=== PATIENT | male | born 1975 | race Caucasian/White ===

== ENCOUNTER → 2017-09-08 | Outpatient (CLI) | payer OTHER | LOC: FIMAGING 11:26 | PROVIDERS: ATTEND Internal Medicine | DX: R07.81 Pleurodynia (principal) ==

== ENCOUNTER → 2018-02-23 | Outpatient (CLI) | payer OTHER | LOC: FIMAGING 12:35 | PROVIDERS: ATTEND Internal Medicine | DX: Z03.89 Encounter for observation for other suspected diseases and conditions ruled out (principal) ==

== ENCOUNTER → 2018-05-31 | Outpatient (CLI) | payer OTHER | LOC: FIMAGING 14:01 | PROVIDERS: ATTEND Internal Medicine | DX: R07.2 Precordial pain (principal) ==

== ENCOUNTER 2018-07-19 18:31 | Emergency (ER) | payer OTHER ==
--- NOTE | 2018-07-19 18:52 | EDPHY ---
H & P Time Seen by Provider: 07/19/18 18:51 HPI/ROS: Chief complaint. Right arm and chest pain HPI. 42-year-old male with complaints of right arm shooting pain today. It is in the middle of his forearm and it comes and goes lasting 1-5 seconds. No injury or trauma. No swelling. No weakness to his arm. He also has had some occasional chest discomfort though he does not have it now. History of GERD. Using [id number] GI medication for the 3 days in his GERD is better. Chest pain is on the right side and occasionally sharp. It seems to improved and resolved after quitting of a ping. Occasionally cold and sweaty. Patient is concerned about cost and only wants an EKG and lab for his heart. Does not want x-ray of his right arm. Recently given heart monitor by his PCP ROS 10 systems were reviewed and negative with the exception of the elements mentioned in the history of present illness Past Medical/Surgical History: Healthy Social History: Single, nonsmoker, no alcohol Smoking Status: Never smoked Physical Exam: General Appearance: Alert well-developed male mild distress vital signs are stable Eyes: Pupils equal and round no pallor or injection. ENT, Mouth: Mucous membranes are moist. Respiratory: There are no retractions, lungs are clear to auscultation. Cardiovascular: Regular rate and rhythm. Gastrointestinal: Abdomen is soft and nontender, no masses, bowel sounds normal. Neurological: Awake and alert, sensory and motor exams grossly normal. Skin: Warm and dry, no rashes. Musculoskeletal: Neck is supple nontender. Extremities patient shows me where the discomfort is in the right mid forearm. There is no swelling. No deformity. Radial pulses full and equal. Good range of motion. No rash. Psychiatric: Patient is oriented X 3, there is no agitation. Constitutional: Initial Vital Signs Temperature (C) 36.4 C 07/19/18 18:38 Heart Rate 64 12 18:38 Respiratory Rate 20 12 18:38 Blood Pressure 111/70 07/19/18 18:38 O2 Sat (%) 99 12 18:38 O2 Delivery Mode Room Air Allergies/Adverse Reactions: No Known Allergies Allergy (Unverified 07/19/18 18:37) Home Medications: Medication Instructions Recorded Otc Gerd Pill 07/19/18 Medical Decision Making - Diagnostics EKG Interpretation: EKG interpreted by me shows normal sinus rhythm normal interval. Left axis deviation. Evidence for right bundle branch block. Otherwise no significant ST elevation or depression. No arrhythmia. The rate is 59 Procedures: I reviewed patient's recent labs from the beginning of June. They were normal. ED Course/Re-evaluation: We will do a phlebotomy draw and perform point of care testing for troponin Point of care troponin is 0 Re-evaluation at 7:30 p.m. Patient is stable and has no symptoms. Patient and I discussed EKG findings, laboratory evaluation. We discussed treatment plan including criteria for return importance of follow-up and further evaluation. He expresses understanding and agreement Differential Diagnosis: I considered acute coronary syndrome, anxiety. No findings on his arm that would suggest imaging. No evidence for thrombophlebitis, cellulitis. Nothing to suggest fracture or dislocation is there has been no trauma. No evidence for ischemia as his distal pulses are full and equal - Data Points Laboratory Results: 07/19/18 19:14 POC Troponin I 0.00 ng/mL ng/mL (0.00-0.08) Point of Care Test Results: Chemistry 07/19/18 19:14 POC Troponin I 0.00 ng/mL ng/mL (0.00-0.08) Departure - Departure Disposition: Home, Routine, Self-Care Clinical Impression: Right arm pain Chest pain Qualifiers: Chest pain type: unspecified Qualified Code(s): R07.9 - Chest pain, unspecified Condition: Good Instructions: Chest Pain (ED) Additional Instructions: Ice to sore area of right forearm next 24 hr. Ibuprofen 600 mg every 6 hr for discomfort Return for further chest discomfort or trouble breathing. Further evaluation by Dr. Hardy Referrals: Aleksandra Hardy MD [Primary Care Provider] - 2-3 days without fail
[2018-07-19 19:55] VITALS: BP 108/64
--- NOTE | 2018-07-19 22:35 | CPEKG ---
Test Reason : OPEN Blood Pressure : / mmHG Vent. Rate : 059 BPM Atrial Rate : 059 BPM P-R Int : 160 ms QRS Dur : 107 ms QT Int : 412 ms P-R-T Axes : 084 -49 048 degrees QTc Int : 409 ms Sinus rhythm Left axis deviation Abnormal R-wave progression, early transition ST elevation, consider anterior injury Confirmed by Matthew Quintana ([id number]) on 07/19/2018 10:35:39 PM Referred By: Confirmed By:Matthew Quintana
== END 2018-07-19 19:54 | disposition home or self-care (01) ==
DX: M79.601 Pain in right arm (principal); R07.9 Chest pain, unspecified; K21.9 Gastro-esophageal reflux disease without esophagitis
CPT/HCPCS: 84484-PO

== ENCOUNTER → 2018-12-24 | Outpatient (CLI) | payer OTHER | LOC: FIMAGING 20:02 | DX: R07.89 Other chest pain (principal); Z80.3 Family history of malignant neoplasm of breast ==